=== PATIENT | male | born 1945 | race Caucasian/White ===

== ENCOUNTER 2023-09-24 12:44 | Outpatient (CLI) | payer BC ==
[~2023-09-24 12:44] MED LIST: Magnevist 469MG/ML 20 ML VIAL ONE
== END 2023-09-24 12:45 | disposition home or self-care (01) ==
LOC: CSHMRI 12:44
PROVIDERS: ATTEND Urology
DX: C61 Malignant neoplasm of prostate (principal); Z90.79 Acquired absence of other genital organ(s); N40.2 Nodular prostate without lower urinary tract symptoms
CPT/HCPCS: 72197